=== PATIENT | female | born 1985 | race Two or more races ===

== ENCOUNTER 2017-01-18 13:21 | Emergency (ER) | payer OTHER ==
[~2017-01-18] VITALS: Ht 175.3 cm; Wt 63.5 kg
[2017-01-18] MEDS ORDERED: LORAZEPAM 1 MG TABLET PO ONE (13:30)
[2017-01-18] MEDS ORDERED: LORAZEPAM 1 MG TABLET ONE (13:34)
[2017-01-18 13:42] VITALS: BP 122/75
== END 2017-01-18 13:43 | disposition home or self-care (01) ==
LOC: ER 13:24
DX: F41.9 Anxiety disorder, unspecified (principal)
CPT/HCPCS: 99283; A4606 ×2; Z7610 ×2